=== PATIENT | male | born 1970 | race Two or more races ===

== ENCOUNTER 2023-08-04 16:54 | Emergency (ER) | payer BC, OTHER ==
[~2023-08-04] VITALS: Ht 188 cm; Wt 98.9 kg
[~2023-08-04 16:54] MED LIST: AMLO2.5T4 PO; HYDR12.5 PO; LOSA25TA27 PO; METF-440 PO
[2023-08-04 17:10] VITALS: BP 118/82; TEMP 98.6; O2SAT 98
[2023-08-04] MEDS ORDERED: AMOX-430 PO (19:10)
== END 2023-08-04 19:32 | disposition home or self-care (01) ==
LOC: ER 16:55
DX: R22.0 Localized swelling, mass and lump, head (principal); E11.9 Type 2 diabetes mellitus without complications; I10 Essential (primary) hypertension; Z79.899 Other long term (current) drug therapy

== ENCOUNTER 2025-06-03 14:23 | Emergency (ER) | payer OTHER ==
[~2025-06-03] VITALS: Ht 188 cm; Wt 95.3 kg
[~2025-06-03 14:23] MED LIST changes: +AMOX-430 PO
[2025-06-03 15:01] LABS: PLATELET COUNT (AUTO) 222 K/uL (150-450); RED BLOOD CELL COUNT(AUTO) 5.30 MIL/uL (4.5-6.0); RED CELL DISTRIBUTION WIDTH 12.6 % (11.5-15.0); WHITE BLOOD COUNT (AUTO) 6.2 K/uL (4.3-11.0)
[2025-06-03 15:13] LABS: CALCIUM, SERUM 8.9 mg/dL (8.5-10.1); CREATININE 0.9 mg/dL (0.6-1.3); SODIUM SERUM 139.0 mmol/L (136-145); UREA NITROGEN, BLOOD 16.0 mg/dL (7-18)
[2025-06-03 15:18] LABS: ASPARTATE AMINOTRANSFERASE 18.0 U/L (15-37); TOTAL PROTEIN, SERUM 7.4 g/dL (6.4-8.2)
[2025-06-03 16:14] VITALS: BP 123/82; TEMP 98.9; O2SAT 98
== END 2025-06-03 16:14 | disposition home or self-care (01) ==
LOC: ER 14:33
DX: M79.661 Pain in right lower leg (principal); I10 Essential (primary) hypertension; E11.9 Type 2 diabetes mellitus without complications; Z79.84 Long term (current) use of oral hypoglycemic drugs; Z79.899 Other long term (current) drug therapy
CPT/HCPCS: 36415; 80048-TC; 80076-TC; 85025-TC; 93971-TC

== ENCOUNTER 2025-08-21 16:21 | Emergency (ER) | payer OTHER ==
[~2025-08-21] VITALS: Ht 188 cm; Wt 87.1 kg
[2025-08-21 16:43] VITALS: BP 141/99; TEMP 98.2; O2SAT 99
== END 2025-08-21 16:54 | disposition home or self-care (01) ==
LOC: ER 16:23
DX: K04.7 Periapical abscess without sinus (principal); J32.9 Chronic sinusitis, unspecified; I10 Essential (primary) hypertension; E11.9 Type 2 diabetes mellitus without complications; Z79.84 Long term (current) use of oral hypoglycemic drugs; Z91.048 Other nonmedicinal substance allergy status; Z79.899 Other long term (current) drug therapy